=== PATIENT | female | born 1990 | race Two or more races ===

== ENCOUNTER 2019-06-26 19:45 | Emergency (ER) | payer SELFPAY ==
[2019-06-26 20:03] VITALS: BP 110/66
--- NOTE | 2019-06-26 20:19 | ER Document Report ---
HPI - HPI Patient complains to provider of: DENTAL PAIN, NAUSEA & VOMITING Time Seen by Provider: 06/26/19 20:10 Onset: Other Severity: Severe Pain Level: 5 Context: This 29-year-old female presents emergency department with right upper dental pain. Reports she is had a dental pain for approximately 1 week. She reports that she is also been vomiting with nausea for the past 3 weeks. She reports it feels like she has been having morning sickness. Patient reports her menstrual periods have been irregular. Last menstrual period was 2 weeks ago and it was very light. Denies abdominal pain. Denies pain with void. Patient denies fever and diarrhea. Associated Symptoms: Nausea, Vomiting Exacerbated by: Food Relieved by: Denies Similar symptoms previously: No Recently seen / treated by doctor: No - REPRODUCTIVE LMP: Unknown. Reproductive: DENIES: : Past Medical History - General Information source: Patient Last Menstrual Period: 2 weeks ago - Social History Smoking Status: Current Every Day Smoker Cigarette use (# per day): Yes Frequency of alcohol use: None Drug Abuse: None Occupation: 2 jobs Lives with: Family Family History: None Patient has suicidal ideation: No Patient has homicidal ideation: No - Medical History Medical History: Negative Past Surgical History: Reports: Hx Section, Hx Orthopedic Surgery Vertical Provider Document - CONSTITUTIONAL Agree With Documented VS: Yes Exam Limitations: No Limitations General Appearance: WD/WN, No Apparent Distress - INFECTION CONTROL TRAVEL OUTSIDE OF THE [place] IN LAST 30 DAYS: No - HEENT HEENT: Atraumatic, Normocephalic. negative: Conjuctival Injection, Pharyngeal Erythema Mouth Diagram: 1 - chipped tooth, no erythema, no swelling ,no pustule, opens mouth wide, good airway, no trismus, no ludwigs. - NECK Neck: Normal Inspection, Supple. negative: Lymphadenopathy-Left, Lymphadenopathy-Right - RESPIRATORY Respiratory: No Respiratory Distress - CARDIOVASCULAR Cardiovascular: Regular Rate - MUSCULOSKELETAL/EXTREMETIES Musculoskeletal/Extremeties: MAEW, FROM - NEURO Level of Consciousness: Awake, Alert, Appropriate Motor/Sensory: No Motor Deficit - DERM Integumentary: Warm, Dry Course - Re-evaluation Re-evalutation: 06/26/19 20:48 29-year-old female with complaints of dental pain for the past week. She also complains of nausea and vomiting for the past 3 weeks. She reports it feels like she has morning sickness. Reports her last menstrual period was 2 weeks ago. Reports ever since she went off the Depo in August she had an irregular menses. Patient reports she has nausea and vomiting at random times. denies abdominal pain, denies hx of GERD. Her test was negative. Patient was instructed on this and encouraged for further evaluation with blood work. Patient declined further evaluation. Patient declined antinausea medicine. No vomiting since arrival. She was instructed on penicillin. She was also instructed on dental resources. She was provided with a written list of dental resources.. Dictation of this chart was performed using voice recognition software; therefore, there may be some unintended grammatical errors. - Vital Signs Vital signs: Temp Pulse Resp BP Pulse Ox 98.4 F 68 18 110/66 97 06/26/19 20:02 06/26/19 20:02 06/26/19 20:02 06/26/19 20:02 06/26/19 20:02 Discharge - Discharge Clinical Impression: Pain, dental Nausea and vomiting Qualifiers: Vomiting type: unspecified Vomiting Intractability: non-intractable Qualified Code(s): R11.2 - Nausea with vomiting, unspecified Condition: Stable Disposition: HOME, SELF-CARE Instructions: [facility], Toothache ([facility]), Penicillin V K ([facility]), Vomiting ([facility]) Additional Instructions: *You have been evaluated for dental pain, nausea and vomiting *Your test was negative. You have opted to not be evaluated for the nausea and vomiting. Please ensure you are drinking enough fluids to stay hydrated. Follow-up with your primary care provider within 1 week for evaluation. *Take medications as prescribed *Follow up with dentist this week *Return to ED for worsening condition, changes, needs, Prescriptions: Penicillin V Potassium [Penicillin Vk 500 mg Tablet] 500 mg PO BID #20 tablet Referrals: NEPTALI MADRID MD [NO LOCAL MD] - Follow up as needed
[2019-06-26] MEDS ORDERED: PENICILLIN V POTASSIUM 500 MG TABLET PO ONE (20:47)
== END 2019-06-26 20:57 | disposition home or self-care (01) ==
LOC: ER 19:45
DX: K08.89 Other specified disorders of teeth and supporting structures (principal); R11.2 Nausea with vomiting, unspecified; F17.210 Nicotine dependence, cigarettes, uncomplicated
CPT/HCPCS: 81025; 99282

== ENCOUNTER 2019-10-27 11:25 | Emergency (ER) | payer SELFPAY ==
--- NOTE | 2019-10-27 12:07 | ER Document Report ---
ED Medical Screen (RME) - General Chief Complaint: Nausea/Vomiting Stated Complaint: VOMITING Time Seen by Provider: 10/27/19 11:52 TRAVEL OUTSIDE OF THE [place] IN LAST 30 DAYS: No - HPI Notes: 10/27/19 12:03 29-year-old female presents to the emergency room with complaints of lightheadedness, dizziness, nausea, vomiting, generalized abdominal pain for the last 3 days, she reports she is had intermittent chest pain for the last month and a half. Patient was seen at urgent care 2 days ago for nausea and vomiting, was diagnosed with a UTI and BV, patient is not started any of these medications because she states her insurance will not cover her prescriptions. Reports symptoms become progressive. Patient is 6 para 3. Patient states she recently took a test that was negative, she is unsure of her last menstrual period due to the fact that she stopped the depo control shot 2 months ago. I have greeted and performed a rapid initial assessment of this patient. A comprehensive ED assessment and evaluation of the patient, analysis of test results and completion of the medical decision making process will be conducted by additional ED providers. PHYSICAL EXAMINATION: GENERAL: Acutely ill-appearing well-nourished and in no acute distress. HEAD: Atraumatic, normocephalic. NECK: Normal range of motion CV: s1, s2 regular LUNGS: No respiratory distress ABD: RLQ, LLQ abd pain Musculoskeletal: Normal range of motion NEUROLOGICAL: Normal speech, normal gait. SKIN: Warm, Dry, normal turgor, no rashes or lesions noted. Past Medical History Renal/ Medical History: Denies: Hx Peritoneal Dialysis Past Surgical History: Reports: Hx Section, Hx Orthopedic Surgery Physical Exam - Vital signs Vitals: Temp Pulse Resp BP Pulse Ox 97.8 F 62 16 97/63 L 98 10/27/19 11:37 10/27/19 11:37 10/27/19 11:37 10/27/19 11:37 10/27/19 11:37 Course - Vital Signs Vital signs: Temp Pulse Resp BP Pulse Ox 97.8 F 62 16 97/63 L 98 10/27/19 11:37 10/27/19 11:37 10/27/19 11:37 10/27/19 11:37 10/27/19 11:37
[2019-10-27 13:13] LABS: APPEARANCE,URINE CLEAR; BILIRUBIN,URINE NEGATIVE (NEGATIVE); COLOR,URINE YELLOW; GLUCOSE, URINE NEGATIVE (NEGATIVE); KETONES,URINE NEGATIVE (NEGATIVE); LEUKOCYTE ESTERASE,URINE NEGATIVE (NEGATIVE); NITRITE,URINE NEGATIVE (NEGATIVE); PROTEIN,URINE NEGATIVE (NEGATIVE); URINE SPECIFIC GRAVITY 1.006; UROBILINOGEN,URINE NEGATIVE mg/dL (<2.0)
[2019-10-27 13:20] LABS: ABSOLUTE BASOPHILS # (AUTO) 0.1 10^3/uL (0.0-0.2); ABSOLUTE EOSINOPHILS # (AUTO) 0.2 10^3/uL (0.0-0.6); ABSOLUTE LYMPHOCYTES (AUTO) 2.4 10^3/uL (0.5-4.7); ABSOLUTE MONOCYTES (AUTO) 0.7 10^3/uL (0.1-1.4); ABSOLUTE NEUT (AUTO) 6.7 10^3/uL (1.7-8.2); BASOPHILS % (AUTO) 0.8 % (0-2); EOSINOPHILS % (AUTO) 2.3 % (0-6); HEMATOCRIT 40.5 % (36.0-47.0); LYMPHOCYTES % (AUTO) 23.6 % (13-45); MEAN CORPUSCULAR HEMOGLOBIN 21.6 pg (27.0-33.4); MEAN CORPUSCULAR HGB CONC 32.2 g/dL (32.0-36.0); MEAN CORPUSCULAR VOLUME 67 fl (80-97); MONOCYTES % (AUTO) 6.8 % (3-13); PLATELET COUNT 254 10^3/uL (150-450); RED BLOOD COUNT 6.04 10^6/uL (3.72-5.28); RED CELL DISTRIBUTION WIDTH 16.3 % (11.5-14.0); SEGMENTED NEUTROPHILS % (AUTO) 66.5 % (42-78); TOTAL CELLS COUNTED % (AUTO) 100 %
[2019-10-27 13:31] LABS: ALKALINE PHOSPHATASE 58 U/L (38-126); ANION GAP 11 (5-19); ASPARTATE AMINO TRANSFERASE 39 U/L (14-36); BILIRUBIN,DIRECT 0.1 mg/dL (0.0-0.4); BILIRUBIN,TOTAL 1.1 mg/dL (0.2-1.3); BLOOD UREA NITROGEN 10 mg/dL (7-20); CALCIUM 10.1 mg/dL (8.4-10.2); CARBON DIOXIDE 29 mmol/L (22-30); CHLORIDE 102 mmol/L (98-107); GLUCOSE 84 mg/dL (75-110); POTASSIUM 3.9 mmol/L (3.6-5.0); TOTAL PROTEIN 8.8 g/dL (6.3-8.2)
--- NOTE | 2019-10-27 13:56 | RADIOLOGY REPORT (SQ) ---
EXAM DESCRIPTION: CT ABD/PELVIS WITH IV ONLY COMPLETED DATE/TIME: 10/27/2019 1:28 pm REASON FOR STUDY: RLQ, LLQ abd pain, vomiting/nausea COMPARISON: None. TECHNIQUE: CT scan of the abdomen and pelvis performed using helical scanning technique with dynamic intravenous contrast injection. No oral contrast. Images reviewed with lung, soft tissue, and bone windows. Reconstructed coronal and sagittal MPR images reviewed. Delayed images for evaluation of the urinary system also acquired. All images stored on PACS. All CT scanners at this facility use dose modulation, iterative reconstruction, and/or weight based d osing when appropriate to reduce radiation dose to as low as reasonably achievable (ALARA). [facility]: Dose Right [facility]: CareDose [facility]: Dose Right [facility]: Teradose 4D [facility]: Company CONTRAST TYPE AND DOSE: contrast/concentration: Isovue 350.00 mg/ml; Total Contrast Delivered: 78.0 ml; Total Saline Delivered: 56.0 ml RENAL FUNCTION: None required. The patient is less than 50 years old. RADIATION DOSE: CT Rad equipment meets quality standard of care and radiation dose reduction techniq ues were employed. CTDIvol: 5.2 - 6.4 mGy. DLP: 628 mGy-cm.. LIMITATIONS: None. FINDINGS: LOWER CHEST: No significant findings. No nodules or infiltrates. LIVER: Normal size. No masses. No dilated ducts. SPLEEN: Normal size. No focal lesions. PANCREAS: No masses. No significant calcifications. No adjacent inflammation or peripancreatic fluid collections. Pancreatic duct not dilated. GALLBLADDER: No identified stones by CT criteria. No inflammatory changes to suggest cholecystitis. ADRENAL GLANDS: No significant masses or asymmetry. RIGHT KIDNEY AND URETER: No solid masses. No significant calcifications. No hydronephrosis or hyd roureter. LEFT KIDNEY AND URETER: No solid masses. No significant calcifications. No hydronephrosis or hydr oureter. AORTA AND VESSELS: No aneurysm. No dissection. Renal arteries, SMA, celiac without stenosis. RETROPERITONEUM: No retroperitoneal adenopathy, hemorrhage or masses. BOWEL AND PERITONEAL CAVITY: No masses or inflammatory changes. No free fluid or peritoneal masses. APPENDIX: Normal. PELVIS: No mass. No free fluid. Normal bladder. ABDOMINAL WALL: No masses. No hernias. BONES: No significant or acute findings. OTHER: No other significant finding. IMPRESSION: NO SIGNIFICANT OR ACUTE FINDING IN THE ABDOMEN OR PELVIS ON CT SCAN WITH IV CONTRAST. TECHNICAL DOCUMENTATION: JOB ID: [id number] Quality ID # [id number]: Final reports with documentation of one or more dose reduction techniques (e.g., Au tomated exposure control, adjustment of the mA and/or kV according to patient size, use of iterative reconstruction technique) 2010 [employer]- All Rights Reserved Reading location - IP/workstation name: [email or web address]
--- NOTE | 2019-10-27 16:44 | ER Document Report ---
ED General - General Chief Complaint: Nausea/Vomiting Stated Complaint: VOMITING Time Seen by Provider: 10/27/19 11:52 TRAVEL OUTSIDE OF THE [place] IN LAST 30 DAYS: No Past Medical History - Social History Smoking Status: Never Smoker Family History: None Patient has suicidal ideation: No Patient has homicidal ideation: No Renal/ Medical History: Denies: Hx Peritoneal Dialysis Past Surgical History: Reports: Hx Section, Hx Orthopedic Surgery Physical Exam - Vital signs Vitals: Temp Pulse Resp BP Pulse Ox 97.8 F 62 16 97/63 L 98 10/27/19 11:37 10/27/19 11:37 10/27/19 11:37 10/27/19 11:37 10/27/19 11:37 - Notes Notes: Patient presents emerged department complaining of nausea and vomiting is been gone for the past 2 days. States is not able keep anything down. Is been associated with some suprapubic abdominal pain is been constant as well as some left upper quadrant pain that is been intermittent. She reports that she had a fever 101 last night as well as some URI symptoms nonproductive cough and diarrhea. She had 3 episodes of diarrhea that is watery with no blood. Also complaining of some urgency and frequency. But no vaginal bleeding or discharge and Patient says she was seen in urgent care center 4 days ago because of generalized abdominal pain with urgency and frequency diagnosed with bacterial vaginosis as well as UTI. She cannot afford the prescription for the UTI antibiotics but has been taking the Flagyl. Patient reports that the chest pain and left upper quadrant is intermittent. Occurs intermittently throughout the day. There is no precipitating or relieving factors. Last for few minutes and goes away. She denies a stabbing sensation radiates up her chest and all around into her back. Associated some shortness of breath and palpitations. Triage note she says intermittent chest pain for a month but she tells me just been going on for 2 or 3 days I asked her twice to verify denies recent sore throat or trauma Patient is also complaining of being lightheaded for the past 2 days which has a spinning sensation which is worse with movement and better with rest. Associated bitemporal headache. Headache came on gradually was no thunderclap headache or orthotics never had and is located in the bitemporal area. Headaches been going on since last night. Not associated with any blurred or double vision Past medical history is unremarkable Social history does not smoke or drink at all Her LMP is not sure she was on Depo-Provera and her last period was about 2 months ago reports 1+ and 1- home test Review of systems pertinent positives and negatives in HPI otherwise all the systems were reviewed and acutely negative PHYSICIAN EXAM -vital signs are noted triage note and note from triage reviewed GENERAL: Well-appearing, well-nourished and in _no acute distress HEAD: Atraumatic, normocephalic. EYES: Pupils equal round and reactive to light, extraocular movements intact, there is no nystagmus or photophobia sclera anicteric, conjunctiva are normal. ENT: nares patent, oropharynx clear without exudates. Slightly dry mucous membranes. Face nontender NECK: supple without lymphadenopathy or meningeal signs LUNGS: Breath sounds clear to auscultation bilaterally and equal. No wheezes rales or rhonchi. No chest wall tenderness HEART: Regular rate and rhythm without murmurs ABDOMEN: Soft, there is minimal diffuse tenderness throughout does not localize over McBurney's in the suprapubic area or the right upper quadrant is not enlarged EXTREMITIES: No deformity, no edema. No cords that are palpable NEUROLOGICAL: Alert and oriented x4. Cranial nerves he has symmetrical smile facies and shoulder shrug. His motor strength is 5/5 bilaterally in the upper and lower extremities. Toes downgoing. Sensation is intact to light touch is a negative Romberg and normal gait per triage she does reproducible vertiginous symptoms with rapid movement of her head PSYCH: Normal mood, normal affect. SKIN: Warm, Dry, normal turgor, no rashes or lesions noted. BACK-nontender in the midline CVA tenderness bilaterally Differential diagnosis UTI pyelonephritis dehydration abnormal electrolytes Course - Re-evaluation Re-evalutation: 10/27/19 18:47 ED patient is remained stable she was given Zofran. Has been tolerating liquids well. Medical decision-making patient with multiple complaints #1 is nausea and vomiting dehydrated however no ketones in her urine and she is tolerating liquids well. Because of her abdominal pain is unclear may just be related to her UTI as her CT is negative. Clear as the cause of the left upper quadrant pain that goes into her chest and back either. T is negative. She is on control pills for 2 months so unlikely that represents a PE. She is not tachycardic or tachypneic her sats are good at this point patient looks well and I think she be discharged home. She evidence of UTI now but they did diagnose her with UTI the other day and she has symptoms consistent with such surgery is reasonable to treat her. She will be given a prescription for Keflex. Ruthfran she is advised to respiratory plenty of fluids follow-up in clinic 2 to 3 days if not better otherwise in 2 weeks for recheck do not think this is a sending Figueroa she is afebrile has a normal white count unremarkable urine At this time there is no indication for admission. I have discussed the findings with patient/family with return precautions and follow-up recommendations. Verbal discharge instructions given at the bedside and opportunity for questions given. Medication warnings were given if indicated. Patient is in agreement with this plan and has verbalized understanding of return precautions and the need for primary care follow-up as directed.. 10/27/19 18:49 - Vital Signs Vital signs: Temp Pulse Resp BP Pulse Ox 97.8 F 62 16 97/63 L 98 10/27/19 11:37 10/27/19 11:37 10/27/19 11:37 10/27/19 11:37 10/27/19 11:37 - Laboratory Result Diagrams: 10/27/19 12:40 10/27/19 12:40 Laboratory results interpreted by me: 10/27/19 10/27/19 12:40 12:40 RBC 6.04 H MCV 67 L MCH 21.6 L RDW 16.3 H AST 39 H Total Protein 8.8 H Discharge - Discharge Clinical Impression: UTI (urinary tract infection) Qualifiers: Urinary tract infection type: acute cystitis Nausea and vomiting Qualifiers: Vomiting Intractability: non-intractable Abdominal pain Qualifiers: Abdominal location: unspecified location Qualified Code(s): R10.9 - Unspecified abdominal pain Condition: Stable Disposition: HOME, SELF-CARE Instructions: Abdominal Pain ([facility]), Antinausea Medication ([facility]), Urinary Tract Infection ([facility]), Vomiting ([facility]) Additional Instructions: Please review the discharge instructions, they will tell you about your diseas e/injury and what you need to return to the ED for Return to the ED if you feel worse or can follow-up with your family doctor Stay on clear liquids for 8 hours and then a bland diet for 2 to 3 days avoiding fatty greasy foods Follow-up in clinic in 2 to 3 days if not better otherwise in 10 days Prescriptions: Cephalexin Monohydrate [Keflex 500 mg Capsule] 500 mg PO Q6H 5 Days #28 capsule Ondansetron HCl [Zofran 4 mg Tablet] 1 tab PO Q4H PRN #10 tablet PRN Reason: Referrals: [facility] [Provider Group] (2 to 3 days if not better otherwise in 10 days)
[2019-10-27] MEDS ORDERED: ONDANSETRON 4 MG TAB.RAPDIS PO ONE (16:48)
--- NOTE | 2019-10-27 17:44 | RADIOLOGY REPORT (SQ) ---
EXAM DESCRIPTION: CHEST 2 VIEWS COMPLETED DATE/TIME: 10/27/2019 4:10 pm REASON FOR STUDY: Chest pain COMPARISON: None. EXAM PARAMETERS: NUMBER OF VIEWS: two views TECHNIQUE: Digital Frontal and Lateral radiographic views of the chest acquired. RADIATION DOSE: NA LIMITATIONS: none FINDINGS: LUNGS AND PLEURA: No opacities, masses or pneumothorax. No pleural effusion. MEDIASTINUM AND HILAR STRUCTURES: No masses or contour abnormalities. HEART AND VASCULAR STRUCTURES: Heart normal size. No evidence for failure. BONES: No acute findings. HARDWARE: None in the chest. OTHER: No other significant finding. IMPRESSION: NO ACUTE RADIOGRAPHIC FINDING IN THE CHEST. TECHNICAL DOCUMENTATION: JOB ID: [id number] [employer] All Rights Reserved Reading location - IP/workstation name: [email or web address]
[2019-10-27] MEDS ORDERED: CEPHALEXIN 500 MG CAPSULE PO ONE (18:55)
[2019-10-27 19:53] VITALS: BP 92/67
--- NOTE | 2019-10-27 21:59 | EKG REPORT ---
SEVERITY:- NORMAL ECG - SINUS RHYTHM : Confirmed by: Adam Ernst 27-Oct-2019 21:57:43
== END 2019-10-27 19:54 | disposition home or self-care (01) ==
LOC: ER 11:25
DX: N30.00 Acute cystitis without hematuria (principal); R11.2 Nausea with vomiting, unspecified; R10.30 Lower abdominal pain, unspecified; R50.9 Fever, unspecified; R19.7 Diarrhea, unspecified
CPT/HCPCS: 93005; 99284; 36415; 83690; 85025; 81025; 80053; 81001; 84484; 71046; 74177; 93010; S0119

== ENCOUNTER 2019-12-21 19:26 | Emergency (ER) | payer MEDICAID ==
[2019-12-21] MEDS ORDERED: METOCLOPRAMIDE HCL 10 MG TABLET PO ONE (20:57)
[2019-12-21] MEDS ORDERED: NORMAL SALINE 1000 ML 1,000 ML IV ONE (20:58)
--- NOTE | 2019-12-21 21:01 | ER Document Report ---
ED Medical Screen (RME) - General Stated Complaint: ABDOMINAL PAIN Time Seen by Provider: 12/21/19 20:53 Primary Care Provider: CAMERON LEON ARNP [Primary Care Provider] - Follow up as needed Notes: 29-year-old female, at unknown gestation with positive home test but no ultrasound confirmation, chief complaint of sharp lower abdominal pain developing over the past day. She reports current nausea. She also reports intermittent sharp upper abdominal pain, she has also vomited multiple times a day for a while. She denies vaginal bleeding, fever, dysuria. She has had C- sections but no other surgeries. TRAVEL OUTSIDE OF THE [place] IN LAST 30 DAYS: No - Related Data Allergies/Adverse Reactions: No Known Allergies Allergy (Unverified 12/21/19 20:50) Past Medical History Renal/ Medical History: Denies: Hx Peritoneal Dialysis Past Surgical History: Reports: Hx Section, Hx Orthopedic Surgery Physical Exam - Vital signs Vitals: Temp Pulse Resp BP Pulse Ox 98.6 F 64 20 102/68 100 12/21/19 19:42 12/21/19 19:42 12/21/19 19:42 12/21/19 19:42 12/21/19 19:42 - General General appearance: Appears well In distress: None - Abdominal Tenderness: Tender - There is some tenderness in the epigastric area and left lower quadrant, right upper quadrant unremarkable, lower abdomen with mild tenderness. Gravid abdomen Course - Re-evaluation Re-evalutation: Patient reports LMP was in September, she should be first trimester, however she appears to have a gravid abdomen. I have greeted and performed a rapid initial assessment of this patient. A comprehensive ED assessment and evaluation of the patient, analysis of test results and completion of the medical decision making process will be conducted by additional ED providers. - Vital Signs Vital signs: Temp Pulse Resp BP Pulse Ox 98.6 F 64 20 102/68 100 12/21/19 19:42 12/21/19 19:42 12/21/19 19:42 12/21/19 19:42 12/21/19 19:42 Doctor's Discharge - Discharge Referrals: CAMERON LEON ARNP [Primary Care Provider] - Follow up as needed
[2019-12-21 21:30] LABS: ABSOLUTE BASOPHILS # (AUTO) 0.1 10^3/uL (0.0-0.2); ABSOLUTE EOSINOPHILS # (AUTO) 0.3 10^3/uL (0.0-0.6); ABSOLUTE LYMPHOCYTES (AUTO) 2.7 10^3/uL (0.5-4.7); ABSOLUTE MONOCYTES (AUTO) 0.8 10^3/uL (0.1-1.4); ABSOLUTE NEUT (AUTO) 6.4 10^3/uL (1.7-8.2); APPEARANCE,URINE CLEAR; BASOPHILS % (AUTO) 0.7 % (0-2); BILIRUBIN,URINE NEGATIVE (NEGATIVE); COLOR,URINE YELLOW; EOSINOPHILS % (AUTO) 3.1 % (0-6); GLUCOSE, URINE NEGATIVE (NEGATIVE); HEMATOCRIT 34.7 % (36.0-47.0); HEMOGLOBIN 11.3 g/dL (12.0-15.5); KETONES,URINE NEGATIVE (NEGATIVE); LEUKOCYTE ESTERASE,URINE NEGATIVE (NEGATIVE); LYMPHOCYTES % (AUTO) 26.6 % (13-45); MEAN CORPUSCULAR HEMOGLOBIN 22.2 pg (27.0-33.4); MEAN CORPUSCULAR HGB CONC 32.6 g/dL (32.0-36.0); MEAN CORPUSCULAR VOLUME 68 fl (80-97); MONOCYTES % (AUTO) 7.3 % (3-13); NITRITE,URINE NEGATIVE (NEGATIVE); PLATELET COUNT 238 10^3/uL (150-450); PROTEIN,URINE NEGATIVE (NEGATIVE); RED CELL DISTRIBUTION WIDTH 17.4 % (11.5-14.0); SEGMENTED NEUTROPHILS % (AUTO) 62.3 % (42-78); TOTAL CELLS COUNTED % (AUTO) 100 %; URINE SPECIFIC GRAVITY 1.017; WHITE BLOOD COUNT 10.3 10^3/uL (4.0-10.5)
[2019-12-21 21:51] LABS: ALBUMIN 4.3 g/dL (3.5-5.0); ALKALINE PHOSPHATASE 57 U/L (38-126); ANION GAP 11 (5-19); ASPARTATE AMINO TRANSFERASE 22 U/L (14-36); BILIRUBIN,DIRECT 0.2 mg/dL (0.0-0.4); BILIRUBIN,TOTAL 0.6 mg/dL (0.2-1.3); BLOOD UREA NITROGEN 9 mg/dL (7-20); CALCIUM 9.4 mg/dL (8.4-10.2); CARBON DIOXIDE 22 mmol/L (22-30); CHLORIDE 104 mmol/L (98-107); GLUCOSE 91 mg/dL (75-110); TOTAL PROTEIN 7.6 g/dL (6.3-8.2)
--- NOTE | 2019-12-21 22:29 | RADIOLOGY REPORT (SQ) ---
EXAM DESCRIPTION: US TRANSVAGINAL CLINICAL HISTORY: 29 years Female abd pain, +HCG, COMPARISON: None TECHNIQUE: Transvaginal OB ultrasound was performed including color duplex analysis. FINDINGS: The uterus measures 10.7 x 5.4 x 7.5 cm. The cervix is closed measuring 3.0 cm in length. The right ovary measures 3.7 x 2.2 x 2.6 cm with normal color and spectral Doppler flow. There is a probable 2.0 cm corpus luteum cyst. The left ovary measures 3.1 x 1.3 x 2.4 cm with normal spectral Doppler flow. No adnexal masses or free fluid collections are seen. There is an intrauterine gestational sac containing a yolk sac and pole. heart rate is measured at 145 bpm. The yolk sac measures 3 mm in diameter. The mean gestational sac diameter gives an EGA of 7 weeks 2 days. IMPRESSION: Single viable intrauterine with an EGA by ultrasound of 7 weeks 2 days giving an EDC on 08/06/2020.
--- NOTE | 2019-12-22 00:31 | ER Document Report ---
ED GI/ - General Chief Complaint: Abdominal Cramping Stated Complaint: ABDOMINAL PAIN Time Seen by Provider: 12/21/19 20:53 Primary Care Provider: CAMERON LEON ARNP [Primary Care Provider] - Follow up as needed Notes: Patient is a 29-year-old female, at unknown gestation with positive home test but no ultrasound confirmation, chief complaint of sharp lower abdominal pain developing over the past day. She reports current nausea. She also reports intermittent sharp upper abdominal pain, she has also vomited multiple times a day for a while. She denies vaginal bleeding, fever, dysuria. She has had C-sections but no other surgeries. TRAVEL OUTSIDE OF THE [place] IN LAST 30 DAYS: No - Related Data Allergies/Adverse Reactions: No Known Allergies Allergy (Unverified 12/21/19 20:50) Home Medications: gummies Past Medical History - General Information source: Patient - Social History Smoking Status: Never Smoker Chew tobacco use (# tins/day): No Frequency of alcohol use: Rare Drug Abuse: None Lives with: Family Family History: None Patient has suicidal ideation: No Patient has homicidal ideation: No - Medical History Medical History: Negative Renal/ Medical History: Denies: Hx Peritoneal Dialysis Past Surgical History: Reports: Hx Section, Hx Orthopedic Surgery - Immunizations Immunizations up to date: Yes Hx Diphtheria, Pertussis, Tetanus Vaccination: Yes Review of Systems - Review of Systems Constitutional: No symptoms reported EENT: No symptoms reported Cardiovascular: No symptoms reported Respiratory: No symptoms reported Gastrointestinal: See HPI Genitourinary: No symptoms reported Female Genitourinary: See HPI Musculoskeletal: No symptoms reported Skin: No symptoms reported Hematologic/Lymphatic: No symptoms reported Neurological/Psychological: No symptoms reported Physical Exam - Vital signs Vitals: Temp Pulse Resp BP Pulse Ox 98.6 F 64 20 102/68 100 12/21/19 19:42 12/21/19 19:42 12/21/19 19:42 12/21/19 19:42 12/21/19 19:42 - Notes Notes: GENERAL: Alert, interacts well. No acute distress. HEAD: Normocephalic, atraumatic. EYES: Pupils equal, round, and reactive to light. Extraocular movements intact. ENT: Oral mucosa moist, tongue midline. Oropharynx unremarkable. Airway patent. LUNGS: Clear to auscultation bilaterally, no wheezes, rales, or rhonchi. No respiratory distress. HEART: Regular rate and rhythm. No murmur ABDOMEN: Soft, non-tender. Non-distended. Bowel sounds present in all 4 quadrants. EXTREMITIES: Moves all 4 extremities spontaneously. No edema, normal radial and dorsalis pedis pulses bilaterally. No cyanosis. BACK: no cervical, thoracic, lumbar midline tenderness. No saddle anesthesia, normal distal neurovascular exam. Moves all extremities in full range of motion. NEUROLOGICAL: Alert and oriented x3. Normal speech. Cranial nerves II through XII grossly intact. PSYCH: Normal affect, normal mood. SKIN: Warm, dry, normal turgor. No rashes or lesions noted. Course - Re-evaluation Re-evalutation: On reevaluation patient is sleeping but easily aroused. Her abdomen exam is benign, she is very well-appearing. Vital signs unremarkable. CBC unremarkable except for mild anemia, patient states this is baseline for her. RhoGam is not indicated. Urinalysis unremarkable. Patient has been on [place] to tolerate p.o. without difficulty. She is still requesting nausea medication for home, discussed options, provided with Reglan. Ultrasound showing intrauterine that is living with a heartbeat of 145, no concerning findings otherwise, no acute findings. Discussed with patient, provided her with a copy of her report. Patient states appreciation. Discussed follow-up and return precautions. Patient states understanding and agreement. Stable at time of discharge. - Vital Signs Vital signs: Temp Pulse Resp BP Pulse Ox 98.8 F 68 18 110/66 100 12/22/19 00:54 12/22/19 00:54 12/22/19 00:54 12/22/19 00:54 12/22/19 00:54 - Laboratory Result Diagrams: 12/21/19 21:15 12/21/19 21:15 Laboratory results interpreted by me: 12/21/19 12/21/19 12/21/19 21:15 21:15 21:15 Hgb 11.3 L Hct 34.7 L MCV 68 L MCH 22.2 L RDW 17.4 H Serum HCG, Qual POSITIVE H Beta HCG, Quant Urine Urobilinogen 4.0 H Urine Ascorbic Acid 40 H 12/21/19 21:15 Hgb Hct MCV MCH RDW Serum HCG, Qual Beta HCG, Quant 17822.00 H Urine Urobilinogen Urine Ascorbic Acid Discharge - Discharge Clinical Impression: Abdominal pain affecting , Vomiting affecting Condition: Stable Disposition: HOME, SELF-CARE Additional Instructions: Your overall work-up is reassuring, the uterus shows a living in the uterus with no concerning findings. Continue to hydrate, take the nausea medication Reglan if needed, you can add 25 to 50 mg of Benadryl with this every 6 hours if needed. Follow-up with [facility] for additional management. Return if you worsen including uncontrolled vomiting, severe worsening pain, bleeding, fever, or any other concerning symptoms. Prescriptions: Metoclopramide HCl [Reglan] 5 mg PO ASDIR PRN #30 tablet PRN Reason: Forms: Return to Work Referrals: CAMERON LEON ARNP [Primary Care Provider] - Follow up as needed
[2019-12-22 00:57] VITALS: BP 110/66
== END 2019-12-22 00:54 | disposition home or self-care (01) ==
LOC: ER 19:26
DX: O26.891 Other specified pregnancy related conditions, first trimester (principal); R10.30 Lower abdominal pain, unspecified; R10.10 Upper abdominal pain, unspecified; O21.9 Vomiting of pregnancy, unspecified; O99.011 Anemia complicating pregnancy, first trimester; D64.9 Anemia, unspecified; Z3A.00 Weeks of gestation of pregnancy not specified; Z79.899 Other long term (current) drug therapy
CPT/HCPCS: 99284; 96360; 96361; 86900; 86901; 36415; 84702; 83690; 84703; 85025; 80053; 81001; 76817; 93976; J3490; J7030

== ENCOUNTER → 2019-12-26 | Outpatient (CLI) | payer MEDICAID ==
--- NOTE | 2019-12-26 16:53 | RADIOLOGY REPORT (SQ) ---
EXAM DESCRIPTION: U/S [id number] TRNABD 1GES W/ODOP COMPLETED DATE/TIME: 12/26/2019 2:33 pm REASON FOR STUDY: Z34.81 ENCOUNTER FOR SUPRVSN OF NORMAL , FIRST TRIMESTER Z34.81 ENCOUNTE R FOR SUPRVSN OF NORMAL , FIRST TRIM COMPARISON: None. TECHNIQUE: Transabdominal static and realtime grayscale images acquired of the pelvis. Additional se lected spectral and color Doppler images recorded. All images stored on PACs. bHCG: Not available. CLINICAL DATES: 8 week 0 day LIMITATIONS: None. FINDINGS: FETUS: Single Living intrauterine . ULTRASOUND EGA: 7 week 5 day ULTRASOUND ADINA: 08/08/2020 EFW: Not applicable less than 20 weeks. CRL: 1.7 cm FHR: 163 beats per minute. SURVEY: Too early to assess. AMNIOTIC FLUID: Adequate amount. PLACENTA: Not yet developed due to early gestation. SUBCHORIONIC BLEED: No. SIZE OF BLEED: Not applicable. UTERUS: No masses. No anomalies. CERVICAL LENGTH: 2.6 cm Closed. RIGHT ADNEXA: Normal ovary with normal vascular flow. No adnexal free fluid. No adnexal masses. LEFT ADNEXA: Ovary not identified due to poor acoustical window. No adnexal free fluid. No adnexal masses. FREE FLUID: None. OTHER: No other significant finding. IMPRESSION: LIVING INTRAUTERINE . EGA 7 week 5 day Trimester of : First trimester - 0 to 13 weeks. TECHNICAL DOCUMENTATION: JOB ID: [id number] 2010 [employer]- All Rights Reserved rev-03/05 Reading location - IP/workstation name: [email or web address]
== END ==
LOC: RAD 13:48
PROVIDERS: ATTEND Nurse Practitioner Family
DX: Z34.81 Encounter for supervision of other normal pregnancy, first trimester (principal); Z3A.08 8 weeks gestation of pregnancy
CPT/HCPCS: 76801

== ENCOUNTER 2020-01-12 15:42 | Emergency (ER) | payer MEDICAID ==
[2020-01-12 15:54] VITALS: BP 108/71
[2020-01-12] MEDS ORDERED: NORMAL SALINE 1000 ML 1,000 ML IV ONE (16:04)
--- NOTE | 2020-01-12 16:08 | ER Document Report ---
ED Medical Screen (RME) - General Chief Complaint: Chest Pain Stated Complaint: CHEST PAIN,NAUSEA Primary Care Provider: CAMERON LEON ARNP [Primary Care Provider] - Follow up as needed Notes: Patient is a 29-year-old female who is G7, P3 at approximately 10 weeks gestation who presents to the emergency department with a chief complaint of chest pain that began 4 days ago. She states is mostly with exertion. Reports associated with shortness of breath. She states that yesterday she had a fever of nearly 102 Fahrenheit at work, was sent home. 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 She took Tylenol for the fever. She also admits to body aches and night sweats. She denies any history of DVT or PE. No lower extremity pain or swelling. No cough or hemoptysis. No hormone replacement medications. No history of cancer. No recent travel, recent surgery or recent mobilization. Reports her boyfriend was recently sick with a "URI", was seen at an outpatient urgent care and given medications for allergies. I have treated and performed a rapid initial assessment of this patient. A comprehensive ED assessment and evaluation of the patient, analysis of test results and completion of medical decision making process will be conducted by additional ED providers. PHYSICAL EXAMINATION: GENERAL: A&Ox4. Answers questions appropriately. TRAVEL OUTSIDE OF THE [place] IN LAST 30 DAYS: No - Related Data Allergies/Adverse Reactions: No Known Allergies Allergy (Unverified 12/21/19 20:50) Past Medical History Renal/ Medical History: Denies: Hx Peritoneal Dialysis Past Surgical History: Reports: Hx Section, Hx Orthopedic Surgery - Immunizations Immunizations up to date: Yes Hx Diphtheria, Pertussis, Tetanus Vaccination: Yes Physical Exam - Vital signs Vitals: Temp Pulse Resp BP Pulse Ox 98.1 F 68 16 108/71 100 01/12/20 15:46 01/12/20 15:46 01/12/20 15:46 01/12/20 15:46 01/12/20 15:46 Course - Vital Signs Vital signs: Temp Pulse Resp BP Pulse Ox 98.1 F 68 16 108/71 100 01/12/20 15:46 01/12/20 15:46 01/12/20 15:46 01/12/20 15:46 01/12/20 15:46 Doctor's Discharge - Discharge Referrals: CAMERON LEON ARNP [Primary Care Provider] - Follow up as needed
--- NOTE | 2020-01-12 16:41 | ER Document Report ---
ED General - General Chief Complaint: Chest Pain Stated Complaint: CHEST PAIN,NAUSEA Time Seen by Provider: 01/12/20 16:23 Primary Care Provider: CAMERON LEON ARNP [Primary Care Provider] - Follow up as needed TRAVEL OUTSIDE OF THE [place] IN LAST 30 DAYS: No - HPI Notes: Patient is a G7, P3 female at approximately 10 weeks gestation who presents to the emergency department for evaluation of fever, vomiting, shortness of breath. She states over the last several days she is noted that she feels short of breath with even just minimal exertion. She states she had a fever of 101.3 yesterday. She states she is felt hot and cold. She has been having trouble keeping anything down. She been having multiple episodes of nonbloody, nonbilious emesis daily. She is still urinating, denies any dysuria, hematuria. Normal bowel movements. She states she is really not coughing. She is been waking up short of breath in the middle of the night. She states that she tried a humidifier in her room which does not seem to be helping. - Related Data Allergies/Adverse Reactions: No Known Allergies Allergy (Unverified 12/21/19 20:50) Home Medications: vitamins Past Medical History - General Information source: Patient - Social History Smoking Status: Never Smoker Family History: None Patient has suicidal ideation: No Patient has homicidal ideation: No Renal/ Medical History: Denies: Hx Peritoneal Dialysis Past Surgical History: Reports: Hx Section, Hx Orthopedic Surgery - Left ankle ORIF - Immunizations Immunizations up to date: Yes Hx Diphtheria, Pertussis, Tetanus Vaccination: Yes Review of Systems - Review of Systems Constitutional: See HPI Respiratory: See HPI Gastrointestinal: See HPI Female Genitourinary: See HPI -: Yes All other systems reviewed and negative Physical Exam - Vital signs Vitals: Temp Pulse Resp BP Pulse Ox 98.1 F 68 16 108/71 100 01/12/20 15:46 01/12/20 15:46 01/12/20 15:46 01/12/20 15:46 01/12/20 15:46 - Notes Notes: Vital signs reviewed, please refer to chart. Head is normocephalic, atraumatic. Pupils equal round, reactive to light. Neck is supple without meningismus. Heart is regular rate and rhythm. Lungs are clear to auscultation bilaterally. Abdomen is soft, nontender, normoactive bowel sounds throughout. Extremities without cyanosis, clubbing. Posterior calves are nontender. Peripheral pulses are equal. Skin is warm and dry. Patient is awake, alert, neurological exam is nonfocal. Course - Re-evaluation Re-evalutation: 01/12/20 16:40 Is a 29-year-old female who presents the emergency department for evaluation. Laboratory investigations ordered as through triage. The patient does report a fever as well as shortness of breath. I am concerned about the possibility of coronavirus infection. COVID testing will be ordered. Patient is stable at this time, we will continue to monitor. 01/12/20 19:48 Patient's laboratory investigations are largely unremarkable. She is not overly dehydrated. Her chest x-ray is unremarkable. Her influenza and strep screens are negative. At this point, I will treat this patient as a rule out COVID-19 infection. I explained to the patient in great detail that she needs to self quarantine for the next 14 days. She needs to avoid any sort of contact with a very young, the very old, or the immunocompromise. I strongly encouraged her to perform social distancing even in her own household. She voiced understanding to all of this. Otherwise, she is to stay hydrated with small, frequent sips of fluids. Despite her vomiting she is not significantly dehydrated. She is to follow-up with OB in 2 weeks. She is to return to the ED with worsening or new concerning symptoms of any sort. - Vital Signs Vital signs: Temp Pulse Resp BP Pulse Ox 98.1 F 68 16 108/71 100 01/12/20 15:46 01/12/20 15:46 01/12/20 15:46 01/12/20 15:46 01/12/20 15:46 - Laboratory Result Diagrams: 01/12/20 16:45 01/12/20 16:45 Laboratory results interpreted by me: 01/12/20 01/12/20 01/12/20 16:45 16:45 16:45 Hgb 11.0 L Hct 32.3 L MCV 68 L MCH 23.1 L RDW 17.7 H Sodium 134.7 L Beta HCG, Quant 67476.00 H Urine Ketones TRACE H Urine Urobilinogen 2.0 H - Diagnostic Test Radiology reviewed: Reports reviewed Radiology results interpreted by me: 01/12/20 19:47 Chest X-Ray 01/12/20 16:03 IMPRESSION: No acute cardiopulmonary process. Discharge - Discharge Clinical Impression: Vomiting Qualifiers: Vomiting type: unspecified Vomiting Intractability: non-intractable Nausea presence: with nausea Qualified Code(s): R11.2 - Nausea with vomiting, unspecified Dyspnea Qualifiers: Dyspnea type: shortness of breath Qualified Code(s): R06.02 - Shortness of breath; R06.00 - Dyspnea, unspecified; R06.01 - Orthopnea Qualifiers: Weeks of gestation: 10 weeks Qualified Code(s): Z3A.10 - 10 weeks gestation of Condition: Stable Disposition: HOME, SELF-CARE Instructions: Intravenous (IV) Fluids ([facility]), Vomiting ([facility]), Dyspnea, Nonspecific ([facility]) Additional Instructions: Stay hydrated with small, frequent sips of fluids. No clear cause was found for your shortness of breath today. You are being tested for coronavirus. You are to self quarantine for the next 14 days. Please limit your interaction with family members. Follow-up with OB in 2 weeks. Return to the emergency department with worsening or new concerning symptoms of any sort. Forms: Return to Work Referrals: CAMERON LEON ARNP [Primary Care Provider] - Follow up as needed
--- NOTE | 2020-01-12 17:13 | RADIOLOGY REPORT (SQ) ---
EXAM DESCRIPTION: CHEST SINGLE VIEW COMPLETED DATE/TIME: 01/12/2020 5:04 pm REASON FOR STUDY: cp, sob, fever COMPARISON: PA and lateral views of the chest from 10/27/2019. EXAM PARAMETERS: NUMBER OF VIEWS: One view. TECHNIQUE: An AP view of the chest was obtained. RADIATION DOSE: NA LIMITATIONS: None. FINDINGS: LUNGS AND PLEURA: No consolidation, pleural effusion or pneumothorax. MEDIASTINUM AND HILAR STRUCTURES: No mediastinal or hilar contour abnormality. HEART AND VASCULAR STRUCTURES: The cardiac silhouette and pulmonary vasculature are within normal gandhi its. BONES: No acute findings. HARDWARE: None in the chest. OTHER: No other finding. IMPRESSION: No acute cardiopulmonary process. TECHNICAL DOCUMENTATION: JOB ID: [id number] 2010 [employer]- All Rights Reserved Reading location - IP/workstation name: [email or web address]
[2020-01-12 18:15] LABS: ABSOLUTE EOSINOPHILS # (AUTO) 0.2 10^3/uL (0.0-0.6); ABSOLUTE MONOCYTES (AUTO) 0.6 10^3/uL (0.1-1.4); ABSOLUTE NEUT (AUTO) 5.6 10^3/uL (1.7-8.2); BASOPHILS % (AUTO) 0.4 % (0-2); EOSINOPHILS % (AUTO) 2.2 % (0-6); HEMATOCRIT 32.3 % (36.0-47.0); LYMPHOCYTES % (AUTO) 23.6 % (13-45); MEAN CORPUSCULAR HEMOGLOBIN 23.1 pg (27.0-33.4); MEAN CORPUSCULAR HGB CONC 34.2 g/dL (32.0-36.0); MEAN CORPUSCULAR VOLUME 68 fl (80-97); MONOCYTES % (AUTO) 6.8 % (3-13); PLATELET COUNT 249 10^3/uL (150-450); RED BLOOD COUNT 4.78 10^6/uL (3.72-5.28); RED CELL DISTRIBUTION WIDTH 17.7 % (11.5-14.0); TOTAL CELLS COUNTED % (AUTO) 100 %; WHITE BLOOD COUNT 8.4 10^3/uL (4.0-10.5)
[2020-01-12 18:16] LABS: APPEARANCE,URINE SLIGHTLY-CLOUDY; BILIRUBIN,URINE NEGATIVE (NEGATIVE); COLOR,URINE YELLOW; GLUCOSE, URINE NEGATIVE (NEGATIVE); KETONES,URINE TRACE mg/dL (NEGATIVE); PROTEIN,URINE NEGATIVE (NEGATIVE); URINE SPECIFIC GRAVITY 1.018
[2020-01-12 18:26] LABS: ALBUMIN 3.9 g/dL (3.5-5.0); ALKALINE PHOSPHATASE 39 U/L (38-126); ANION GAP 9 (5-19); ASPARTATE AMINO TRANSFERASE 20 U/L (14-36); BILIRUBIN,DIRECT 0.2 mg/dL (0.0-0.4); BILIRUBIN,TOTAL 0.6 mg/dL (0.2-1.3); BLOOD UREA NITROGEN 10 mg/dL (7-20); CARBON DIOXIDE 25 mmol/L (22-30); CHLORIDE 101 mmol/L (98-107); GLUCOSE 101 mg/dL (75-110); POTASSIUM 3.9 mmol/L (3.6-5.0); TOTAL PROTEIN 7.2 g/dL (6.3-8.2)
[2020-01-12 18:31] LABS: A TYPE INFLUENZA AG NEGATIVE (NEGATIVE); B INFLUENZA AG NEGATIVE (NEGATIVE)
--- NOTE | 2020-01-12 19:52 | EKG REPORT ---
SEVERITY:- BORDERLINE ECG - SINUS RHYTHM BORDERLINE T ABNORMALITIES, DIFFUSE LEADS : Confirmed by: Jaime Pringle MD 12-Jan-2020 19:52:19
== END 2020-01-12 20:51 | disposition home or self-care (01) ==
LOC: ER 15:42
DX: O21.9 Vomiting of pregnancy, unspecified (principal); O26.891 Other specified pregnancy related conditions, first trimester; R50.9 Fever, unspecified; R06.02 Shortness of breath; R06.01 Orthopnea; Z79.899 Other long term (current) drug therapy; Z3A.10 10 weeks gestation of pregnancy; Z20.828 Contact with and (suspected) exposure to other viral communicable diseases
CPT/HCPCS: 93005; 99285; 96360; 96361; 36415; 87070; 87880; 84702; 83690; 85025; 87635; 80053; 81001; 84484; 87804; 71045; 93010; J7030

== ENCOUNTER 2020-02-08 18:00 | Emergency (ER) | payer MEDICAID ==
[2020-02-08] MEDS ORDERED: NORMAL SALINE 1000 ML 1,000 ML IV ONE (18:49)
[2020-02-08] MEDS ORDERED: METOCLOPRAMIDE HCL INJ/PF 10 MG/2 ML SDV IV ONE (18:50)
--- NOTE | 2020-02-08 18:52 | ER Document Report ---
ED Medical Screen (RME) - General Chief Complaint: Nausea/Vomiting Stated Complaint: NAUSEA/VOMITING,14 WEEKS Time Seen by Provider: 02/08/20 18:46 Primary Care Provider: CAMERON LEON ARNP [Primary Care Provider] - Follow up as needed Mode of Arrival: Medic Information source: Patient Notes: 29-year-old female presented to ED for complaint of nausea vomiting and diarrhea x2 days. She states she is 14 weeks 3 days . Last menstrual period was in September. She is 7 para 3. She states she does not smoke drink or use any drugs. She states she has had positive is at the health [facility] and is not having any vaginal bleeding at this time. She states she was referred up to women's health care but the appointment is not till next week. She denies any fevers. Patient states at home she was very lightheaded and dizzy and that is why she called 911. I have greeted and performed a rapid initial assessment of this patient. A comprehensive ED assessment and evaluation of the patient, analysis of test results and completion of medical decision making process will be conducted by an additional ED providers. TRAVEL OUTSIDE OF THE [place] IN LAST 30 DAYS: No - Related Data Allergies/Adverse Reactions: No Known Allergies Allergy (Verified 02/08/20 18:48) Past Medical History Renal/ Medical History: Denies: Hx Peritoneal Dialysis Past Surgical History: Reports: Hx Section, Hx Orthopedic Surgery - Immunizations Immunizations up to date: Yes Hx Diphtheria, Pertussis, Tetanus Vaccination: Yes Physical Exam - Vital signs Vitals: Temp Pulse Resp BP Pulse Ox 98.6 F 82 18 104/58 L 100 02/08/20 18:08 02/08/20 18:08 02/08/20 18:08 02/08/20 18:08 02/08/20 18:08 Course - Vital Signs Vital signs: Temp Pulse Resp BP Pulse Ox 98.6 F 82 18 104/58 L 100 02/08/20 18:08 02/08/20 18:08 02/08/20 18:08 02/08/20 18:08 02/08/20 18:08 Doctor's Discharge - Discharge Referrals: CAMERON LEON ARNP [Primary Care Provider] - Follow up as needed
[2020-02-08 19:11] LABS: ABSOLUTE BASOPHILS # (AUTO) 0.1 10^3/uL (0.0-0.2); ABSOLUTE EOSINOPHILS # (AUTO) 0.2 10^3/uL (0.0-0.6); ABSOLUTE LYMPHOCYTES (AUTO) 1.7 10^3/uL (0.5-4.7); ABSOLUTE MONOCYTES (AUTO) 0.5 10^3/uL (0.1-1.4); ABSOLUTE NEUT (AUTO) 7.6 10^3/uL (1.7-8.2); BASOPHILS % (AUTO) 0.7 % (0-2); EOSINOPHILS % (AUTO) 2.2 % (0-6); HEMATOCRIT 33.1 % (36.0-47.0); LYMPHOCYTES % (AUTO) 16.9 % (13-45); MEAN CORPUSCULAR HGB CONC 33.2 g/dL (32.0-36.0); MEAN CORPUSCULAR VOLUME 69 fl (80-97); MONOCYTES % (AUTO) 5.4 % (3-13); PLATELET COUNT 248 10^3/uL (150-450); RED BLOOD COUNT 4.78 10^6/uL (3.72-5.28); RED CELL DISTRIBUTION WIDTH 18.5 % (11.5-14.0); SEGMENTED NEUTROPHILS % (AUTO) 74.8 % (42-78); TOTAL CELLS COUNTED % (AUTO) 100 %; WHITE BLOOD COUNT 10.2 10^3/uL (4.0-10.5)
[2020-02-08 19:27] LABS: ALBUMIN 3.9 g/dL (3.5-5.0); ALKALINE PHOSPHATASE 39 U/L (38-126); ANION GAP 6 (5-19); ASPARTATE AMINO TRANSFERASE 26 U/L (14-36); BILIRUBIN,TOTAL 0.8 mg/dL (0.2-1.3); BLOOD UREA NITROGEN 7 mg/dL (7-20); CALCIUM 9.1 mg/dL (8.4-10.2); CARBON DIOXIDE 22 mmol/L (22-30); CHLORIDE 106 mmol/L (98-107); GLUCOSE 93 mg/dL (75-110); POTASSIUM 3.9 mmol/L (3.6-5.0); TOTAL PROTEIN 7.1 g/dL (6.3-8.2)
[2020-02-08 20:08] LABS: APPEARANCE,URINE CLOUDY; BILIRUBIN,URINE NEGATIVE (NEGATIVE); COLOR,URINE YELLOW; GLUCOSE, URINE NEGATIVE (NEGATIVE); KETONES,URINE TRACE mg/dL (NEGATIVE); PROTEIN,URINE 30 mg/dL (NEGATIVE); URINE SPECIFIC GRAVITY 1.017
--- NOTE | 2020-02-08 20:36 | ER Document Report ---
ED General - General Chief Complaint: Nausea/Vomiting Stated Complaint: NAUSEA/VOMITING,14 WEEKS Time Seen by Provider: 02/08/20 18:46 Primary Care Provider: CAMERON LEON ARNP [NO LOCAL MD] - Follow up as needed Mode of Arrival: Medic Information source: Patient TRAVEL OUTSIDE OF THE [place] IN LAST 30 DAYS: No - HPI Onset: Other - over the last few days Onset/Duration: Gradual Quality of pain: No pain Severity: Severe Pain Level: 0 Associated symptoms: Nausea, Vomiting Exacerbated by: Food, Other - Drink Relieved by: Denies Similar symptoms previously: No Recently seen / treated by doctor: No Notes: 29 year old female who is 14 weeks and 3 days by ultrasound dates here in the ER for persistent nausea and vomiting over the last few days. The patient denies fevers, chills, sweats, known sick contacts. The patient was seen in this ER in December and tested negative for COVID then. The patient says she has been unable to keep anything down over the last few days. The patient denies urinary or vaginal symptoms. - Related Data Allergies/Adverse Reactions: No Known Allergies Allergy (Verified 02/08/20 18:48) Home Medications: pnv Past Medical History - General Information source: Patient - Social History Smoking Status: Never Smoker Chew tobacco use (# tins/day): No Frequency of alcohol use: None Drug Abuse: None Family History: None Patient has suicidal ideation: No Patient has homicidal ideation: No Renal/ Medical History: Denies: Hx Peritoneal Dialysis Past Surgical History: Reports: Hx Section, Hx Orthopedic Surgery - Immunizations Immunizations up to date: Yes Hx Diphtheria, Pertussis, Tetanus Vaccination: Yes Review of Systems - Review of Systems Constitutional: No symptoms reported EENT: No symptoms reported Cardiovascular: No symptoms reported Respiratory: No symptoms reported Gastrointestinal: Nausea, Vomiting Genitourinary: No symptoms reported Female Genitourinary: No symptoms reported Musculoskeletal: No symptoms reported Skin: No symptoms reported Hematologic/Lymphatic: No symptoms reported Neurological/Psychological: No symptoms reported -: Yes All other systems reviewed and negative Physical Exam - Vital signs Vitals: Temp Pulse Resp BP Pulse Ox 98.6 F 82 18 104/58 L 100 02/08/20 18:08 02/08/20 18:08 02/08/20 18:08 02/08/20 18:08 02/08/20 18:08 - Notes Notes: GENERAL: Well-appearing, well-nourished and in no acute distress. HEAD: Atraumatic, normocephalic. EYES: Pupils equal round and reactive to light, extraocular movements intact, sclera anicteric, conjunctiva are normal. ENT: Normal External Ears, nares patent, oropharynx clear without exudates. Moist mucous membranes. NECK: Normal range of motion, supple without lymphadenopathy or JVD. LUNGS: Breath sounds clear to auscultation bilaterally and equal. No wheezes rales or rhonchi. HEART: Regular rate and rhythm without murmurs, rubs or gallops. ABDOMEN: Gravid appearance, soft, nontender, normoactive bowel sounds. No guarding, no rebound. No masses appreciated. EXTREMITIES: Normal range of motion, no pitting or edema. No clubbing or cyanosis. NEUROLOGICAL: Cranial nerves II through XII grossly intact. Normal speech, normal gait. PSYCH: Normal mood, normal affect. SKIN: Warm, Dry, normal turgor, no rashes or lesions noted. Course - Re-evaluation Re-evalutation: 02/08/20 20:36 The patient came to the ER for extreme nausea and vomiting in . The patient was given IV fluids and IV Reglan prior to me seeing her and her symptoms were much improved. The patient denies fevers, chills, sweats, diarrhea, urinary symptoms, or other infectious symptoms. Patient has a follow up appointment with [facility] in the next few weeks. Patient DCed with short course of Zofran to be used only for extreme nausea/vomiting in . - Vital Signs Vital signs: Temp Pulse Resp BP Pulse Ox 98.6 F 82 18 104/58 L 100 02/08/20 18:49 02/08/20 18:08 02/08/20 18:08 02/08/20 18:08 02/08/20 18:08 - Laboratory Result Diagrams: 02/08/20 18:59 02/08/20 18:59 Laboratory results interpreted by me: 02/08/20 02/08/20 02/08/20 17:20 18:59 18:59 Hgb 11.0 L Hct 33.1 L MCV 69 L MCH 23.0 L RDW 18.5 H Sodium 134.2 L Beta HCG, Quant 67451.00 H Urine Protein 30 H Urine Ketones TRACE H Urine Urobilinogen 2.0 H Discharge - Discharge Clinical Impression: Hyperemesis gravidarum Condition: Stable Disposition: HOME, SELF-CARE Instructions: Hyperemesis Gravidarum ([facility]) Additional Instructions: Use Zofran only as needed for extreme nausea. Eat a bland diet in the days to come. Follow up with an [facility] Doctor as soon as possible. Prescriptions: Ondansetron [Zofran Odt 4 mg Tablet] 1 tab PO Q8H PRN #15 tab.rapdis PRN Reason: For Nausea/Vomiting Referrals: CAMERON LEON ARNP [NO LOCAL MD] - Follow up as needed
[2020-02-08 20:46] VITALS: BP 110/60
== END 2020-02-08 21:03 | disposition home or self-care (01) ==
LOC: ER 18:00
DX: O21.0 Mild hyperemesis gravidarum (principal); Z3A.14 14 weeks gestation of pregnancy
CPT/HCPCS: 99284; 96361; 96374; 36415; 84702; 83690; 85025; 80053; 81001; J2765; J7030